=== PATIENT | male | born 1980 | race Hispanic/Latino ===

== ENCOUNTER 2025-01-13 09:55 | Outpatient (CLI) | payer BC | END 2025-01-13 09:56 | disposition home or self-care (01) | LOC: BICCT 09:55 | PROVIDERS: ATTEND Family Medicine | DX: R31.0 Gross hematuria (principal); R10.12 Left upper quadrant pain; K57.30 Diverticulosis of large intestine without perforation or abscess without bleeding | CPT/HCPCS: 74176 ==

== ENCOUNTER 2025-02-01 10:33 | Day surgery (SDC) | payer BC ==
[2025-01-31 15:10] VITALS: BMI 52.4
[2025-02-01] MEDS ORDERED: GLYCOPYRROLATE/PF 0.2 MG/ML VIAL ONE (12:44)
[2025-02-01] MEDS ORDERED: PROPOFOL 200 MG/20 ML VIAL ONE (12:52)
== END 2025-02-01 13:48 | disposition home or self-care (01) ==
LOC: SDC 10:33
PROVIDERS: ATTEND Internal Medicine Gastroenterology
PROC: 0DJD8ZZ Inspection of Lower Intestinal Tract, Via Natural or Artificial Opening Endoscopic (ICD-10-PCS; principal; 2025-02-01)
DX: K57.32 Diverticulitis of large intestine without perforation or abscess without bleeding (principal); K57.30 Diverticulosis of large intestine without perforation or abscess without bleeding; E78.00 Pure hypercholesterolemia, unspecified; F17.200 Nicotine dependence, unspecified, uncomplicated; Z88.6 Allergy status to analgesic agent; Z79.899 Other long term (current) drug therapy
CPT/HCPCS: J2704; J3490